=== PATIENT | male | born 1950 | race Caucasian/White ===

== ENCOUNTER 2022-08-10 09:50 | Inpatient (IN) | payer OTHER ==
[~2022-08-10] VITALS: Ht 167.6 cm; Wt 82.6 kg
[2022-08-10 10:40] LABS: HEMOGLOBIN 14.8 gm/dl (14.0-17.5); RED BLOOD COUNT 4.61 M/UL (4.20-5.50); WHITE BLOOD COUNT 7.6 K/UL (4.5-11.0)
[2022-08-10 11:03] LABS: BUN/CREATININE RATIO 19 (0-10)
[2022-08-10] MEDS ORDERED: ASPIRIN EC81 MG PO (13:05)
[2022-08-10] MEDS ORDERED: LISINOPRIL10 MG PO (13:16)
[2022-08-11 07:38] LABS: HEMOGLOBIN 14.8 gm/dl (14.0-17.5); RED BLOOD COUNT 4.61 M/UL (4.20-5.50); WHITE BLOOD COUNT 6.2 K/UL (4.5-11.0)
[2022-08-11 08:02] LABS: BUN/CREATININE RATIO 25 (0-10)
[2022-08-12 04:00] LABS: HEMOGLOBIN 13.9 gm/dl (14.0-17.5); RED BLOOD COUNT 4.37 M/UL (4.20-5.50)
[2022-08-12 04:02] LABS: WHITE BLOOD COUNT 11.6 K/UL (4.5-11.0)
[2022-08-12 04:46] LABS: BUN/CREATININE RATIO 36 (0-10)
[2022-08-13 02:25] LABS: HEMOGLOBIN 14.1 gm/dl (14.0-17.5); RED BLOOD COUNT 4.39 M/UL (4.20-5.50); WHITE BLOOD COUNT 12.1 K/UL (4.5-11.0)
[2022-08-13 02:44] LABS: BUN/CREATININE RATIO 44 (0-10)
[2022-08-14 01:38] LABS: HEMOGLOBIN 13.9 gm/dl (14.0-17.5); RED BLOOD COUNT 4.3 M/UL (4.20-5.50); WHITE BLOOD COUNT 9.6 K/UL (4.5-11.0)
[2022-08-14 02:06] LABS: BUN/CREATININE RATIO 48 (0-10)
[2022-08-14] MEDS ORDERED: SPIRIVA HANDIH18 MCG INH (10:21)
[2022-08-14] MEDS ORDERED: PREDNISONE20 MG PO (10:21)
[2022-08-14] MEDS ORDERED: LIPITOR20 MG PO (10:21)
[2022-08-14] MEDS ORDERED: PROAIR HFA8.5 GM INH (10:21)
[2022-08-14] MEDS ORDERED: ELIQUIS 5 MG TAB5 MG PO (10:21)
[2022-08-14] MEDS ORDERED: BUMETANIDE1 MG PO (10:21)
[2022-08-14] MEDS ORDERED: METOPROLOL SUCC25 MG PO (10:21)
[2022-08-14] MEDS ORDERED: LEVOFLOXACIN750 MG PO (10:27)
--- NOTE | 2022-08-14 15:33 | NUR ---
Orders wrote yesterday for home 02, patient discharged home today. Per staff- patient did not need home 02/was not wearing 02 at today.
[2022-08-17 04:11] LABS: CHOLESTEROL, TOTAL 187 mg/dL (100-199); HDL CHOLESTEROL 43 mg/dL (>39); LDL CHOLESTEROL CALC 127 mg/dL (0-99); T. CHOL/HDL RATIO 4.3 ratio (0.0-5.0); TRIGLYCERIDES 91 mg/dL (0-149)
== END 2022-08-14 12:13 | disposition home or self-care (01) | DRG 193 ==
LOC: ER1 09:50 → MED SURG 4 12:06 → CDU 12:06 → MED SURG 4 17:02 → PROG CARE 08-12 13:04
PROVIDERS: Internal Medicine; Physician Assistant Medical; ADMIT Internal Medicine
PROC: 4A03XR1 Measurement of Arterial Saturation, Peripheral, External Approach (ICD-10-PCS; 2022-08-11)
PROC: B24BZZZ Ultrasonography of Heart with Aorta (ICD-10-PCS; principal; 2022-08-13)
DX: J18.9 Pneumonia, unspecified organism (principal); I50.21 Acute systolic (congestive) heart failure; J96.01 Acute respiratory failure with hypoxia; J96.02 Acute respiratory failure with hypercapnia; J44.1 Chronic obstructive pulmonary disease with (acute) exacerbation; J44.0 Chronic obstructive pulmonary disease with (acute) lower respiratory infection; I11.0 Hypertensive heart disease with heart failure; I48.91 Unspecified atrial fibrillation; Z20.822 Contact with and (suspected) exposure to COVID-19; F17.200 Nicotine dependence, unspecified, uncomplicated; Z82.49 Family history of ischemic heart disease and other diseases of the circulatory system; Z79.01 Long term (current) use of anticoagulants; Z79.899 Other long term (current) drug therapy
CPT/HCPCS: ECHO; 36415; 36600; 71045; 80048; 80053; 80061; 81001; 82550; 82553; 82803; 83605; 83735; 83880; 84439; 84443; 84484; 85025; 85027; 85379; 87040; 87070; 87081; 87205; 93005; 93306; 94640; 94664; 94760; 96374; 96375; 99285; J0456; J0696; J2920; J2930; J7030; Q9957; Q9967; U0002